=== PATIENT | male | born 1955 | race Caucasian/White ===

== ENCOUNTER 2018-08-29 14:14 | Emergency (ER) | payer BC ==
[~2018-08-29] VITALS: Ht 180.3 cm; Wt 86.2 kg
[2018-08-29] MEDS ORDERED: TETANUS/DIPHTHERIA TOX ADULT 0.5 ML SYR IM ONE (14:45)
[2018-08-29] MEDS ORDERED: NEOMYCIN/POLYMYX/BACITR OINT 0.9 GM PKT TOP ONE ×2 (14:45→17:00)
[2018-08-29] MEDS ORDERED: LIDOCAINE HCL 1% LOCAL INJ 20 ML VIAL INJ ONE (15:30)
[2018-08-29 16:56] VITALS: BP 168/92
[2018-08-29] MEDS ORDERED: TRAMADOL HCL 50 MG TAB PO ONE (18:00)
[2018-08-29] MEDS ORDERED: CLONIDINE HCL 0.1 MG TAB PO ONE (18:00)
== END 2018-08-29 18:07 | disposition home or self-care (01) ==
LOC: ER 14:14
DX: S61.412A Laceration without foreign body of left hand, initial encounter (principal); W26.0XXA Contact with knife, initial encounter; Y92.009 Unspecified place in unspecified non-institutional (private) residence as the place of occurrence of the external cause; Z23 Encounter for immunization
CPT/HCPCS: 90471; 90714; 99283